=== PATIENT | female | born 1950 | race Caucasian/White ===

== ENCOUNTER → 2017-05-05 | Outpatient (CLI) | payer OTHER ==
--- NOTE | 2017-05-05 15:09 | US ---
EXAMINATION TYPE: US extremity nonvasc mass RT DATE OF EXAM: 05/05/2017 COMPARISON: NONE CLINICAL HISTORY: R22.31 Right arm lump. Patient noticed lump right arm 2 weeks ago, scanned directly over lump. soft tissue density that blen ds in with surrounding tissue measuring 1.1 x 0.5 x 1.0 cm, probable lipoma. In the subcutaneous tissue just below skin surface there is oval poorly defined hyperechoic area chip uring 1.1 cm on long axis favoring lipoma or other benign etiology. If lesion enlarges or becomes elissa nful further investigation with MRI may be warranted. IMPRESSION: As above
--- NOTE | 2017-05-07 08:09 | MM ---
Reason for exam: screening (asymptomatic). Last mammogram was performed 1 year and 9 months ago. History: Patient is postmenopausal. Took estrogen for 2 years beginning at age 49. Physical Findings: A clinical breast exam by your physician is recommended on an annual basis and results should be correlated with mammographic findings. MG Screening Mammo w CAD Bilateral CC and MLO view(s) were taken. Prior study comparison: July 31, 2015, bilateral MG screening mammo w CAD. There are scattered fibroglandular densities. No significant changes when compared with prior studies. ASSESSMENT: Negative, BI-RAD 1 RECOMMENDATION: Routine screening mammogram of both breasts in 1 year.
== END | disposition home or self-care (01) ==
LOC: RADUSWWP 14:18
PROVIDERS: ATTEND Family Medicine
DX: Z12.31 Encounter for screening mammogram for malignant neoplasm of breast (principal); R22.31 Localized swelling, mass and lump, right upper limb
CPT/HCPCS: 76882; G0202

== ENCOUNTER → 2017-06-03 | Outpatient (CLI) | payer OTHER ==
--- NOTE | 2017-06-03 16:59 | US ---
EXAMINATION TYPE: US carotid duplex BILAT DATE OF EXAM: 06/03/2017 COMPARISON: NONE CLINICAL HISTORY: R42 dizziness. Symptom not related to positional changes EXAM MEASUREMENTS: RIGHT: Peak Systolic Velocity (PSV) cm/sec ----- Right CCA: 63.9 ----- Right ICA: 83.3 ----- Right ECA: 75.6 ICA/CCA ratio: 1.3 RIGHT: End Diastole cm/sec ----- Right CCA: 13.4 ----- Right ICA: 32.6 ----- Right ECA: 9.5 LEFT: Peak Systolic Velocity (PSV) cm/sec ----- Left CCA: 60.1 ----- Left ICA: 84.4 ----- Left ECA: 82.2 ICA/CCA ratio: 1.4 LEFT: End Diastole cm/sec ----- Left CCA: 17.2 ----- Left ICA: 33.7 ----- Left ECA: 8.4 VERTEBRALS (direction of flow): Right Vertebral: Antegrade Left Vertebral: Antegrade Peak systolic velocity is wnl bialterally. IMPRESSION: Scattered intimal hyperplasia without evidence for hemodynamically significant stenosis. Criteria for Assigning % of Stenosis / Diameter reduction (Estimation based on the indirect measurements of the internal carotid artery velocities (ICA PSV). 1. Normal (no stenosis)=ICA PSV < 125 cm/s: ratio < 2.0: ICA EDV<40 cm/s. 2. Less than 50% stenosis=ICA PSV < 125 cm/s: ratio < 2.0: ICA EDV<40 cm/s. 3. 50 to 69% stenosis=ICA PSV of 125 to 230 cm/s: ration 2.0 ? 4.0: ICA EDV 40-100 cm/s. 4. Greater than 70% stenosis to near occlusion= ICA PSV > 230 cm/s: ratio > 4.0: ICA EDV > 100 cm/s. 5. Near occlusion= ICA PSV velocities may be low or undetectable: variable ratio and ICA EDV. 6. Total occlusion=unable to detect flow.
== END | disposition home or self-care (01) ==
LOC: RADUSWWP 15:36
PROVIDERS: ATTEND Family Medicine
DX: I77.3 Arterial fibromuscular dysplasia (principal)
CPT/HCPCS: 93880

== ENCOUNTER → 2017-11-17 | Outpatient (CLI) | payer MEDICARE, OTHER ==
--- NOTE | 2017-11-17 10:45 | US ---
EXAMINATION TYPE: US kidneys/renal and bladder DATE OF EXAM: 11/17/2017 COMPARISON: Correlation CT 07/07/2015 CLINICAL HISTORY: 67-year-old female N39.0 Urinary tract infection, site not specified. Recurrent UTI 's, hematuria TECHNIQUE: Multiple sonographic images of the kidneys and bladder are obtained. FINDINGS: Right Kidney: 10.5 x 4.8 x 5.3 cm without hydronephrosis. There is a 1.7 cm upper pole parapelvic cy st. Left Kidney: 12.2 x 5.9 x 4.8 cm without hydronephrosis. There is a mid to lower pole 2.0 cm parapelv ic cyst. No gross abnormality of the urine distended bladder. Bilateral Jets seen: yes IMPRESSION: 1. No hydronephrosis. 2. Incidentally, a parapelvic cyst on each side measuring up to 2 cm.
== END | disposition home or self-care (01) ==
LOC: RADUSWWP 09:21
PROVIDERS: ATTEND Obstetrics & Gynecology
DX: N39.0 Urinary tract infection, site not specified (principal)
CPT/HCPCS: 76770

== ENCOUNTER → 2018-10-14 | Outpatient (CLI) | payer MEDICARE, OTHER ==
--- NOTE | 2018-10-16 14:50 | MM ---
Reason for exam: screening (asymptomatic). Last mammogram was performed 1 year and 5 months ago. History: Patient is postmenopausal. Took estrogen for 2 years beginning at age 49. MG 3D Screening Mammo W/Cad Bilateral CC and MLO view(s) were taken. Prior study comparison: May 05, 2017, bilateral MG screening mammo w CAD. July 31, 2015, bilateral MG screening mammo w CAD. The breast tissue is heterogeneously dense. This may lower the sensitivity of mammography. No discrete abnormality. No significant changes when compared with prior studies. ASSESSMENT: Negative, BI-RAD 1 RECOMMENDATION: Routine screening mammogram of both breasts in 1 year.
== END | disposition home or self-care (01) ==
LOC: RADMAMWWP 10:22
PROVIDERS: ATTEND Family Medicine
DX: Z12.31 Encounter for screening mammogram for malignant neoplasm of breast (principal)
CPT/HCPCS: 77063; 77067

== ENCOUNTER → 2019-09-14 | Outpatient (CLI) | payer MEDICARE, OTHER ==
--- NOTE | 2019-09-14 14:25 | XR ---
EXAMINATION TYPE: XR chest 2V DATE OF EXAM: 09/14/2019 COMPARISON: Prior chest x-ray 07/07/2015 HISTORY: Bronchitis, chest congestion TECHNIQUE: Frontal and lateral views of the chest are obtained. FINDINGS: There is no focal air space opacity, pleural effusion, or pneumothorax seen. The cardiac silhouette size is within normal limits. The osseous structures are intact. Aorta is dense. IMPRESSION: No acute cardiopulmonary process.
== END | disposition home or self-care (01) ==
LOC: RADXRMAIN 11:24
PROVIDERS: ATTEND Family Medicine
DX: J40 Bronchitis, not specified as acute or chronic (principal)
CPT/HCPCS: 71046

== ENCOUNTER → 2019-11-18 | Outpatient (CLI) | payer MEDICARE, OTHER ==
--- NOTE | 2019-11-21 11:24 | MM ---
Reason for exam: screening (asymptomatic). Last mammogram was performed 1 year and 1 month ago. History: Patient is postmenopausal. Took estrogen for 2 years beginning at age 49. Physical Findings: A clinical breast exam by your physician is recommended on an annual basis and results should be correlated with mammographic findings. MG 3D Screening Mammo W/Cad Bilateral CC and MLO view(s) were taken. Prior study comparison: October 14, 2018, bilateral MG 3d screening mammo w/cad. May 05, 2017, bilateral MG screening mammo w CAD. The breast tissue is heterogeneously dense. This may lower the sensitivity of mammography. No suspicious abnormality. No significant changes when compared with prior studies. ASSESSMENT: Negative, BI-RAD 1 RECOMMENDATION: Routine screening mammogram of both breasts in 1 year.
== END | disposition home or self-care (01) ==
LOC: RADMAMWWP 09:35
PROVIDERS: ATTEND Family Medicine
DX: Z12.31 Encounter for screening mammogram for malignant neoplasm of breast (principal)
CPT/HCPCS: 77063; 77067

== ENCOUNTER → 2020-10-08 | Outpatient (CLI) | payer MEDICARE, OTHER | END | disposition home or self-care (01) | LOC: LABWHC1 13:26 | PROVIDERS: ATTEND Family Medicine | DX: Z11.52 Encounter for screening for COVID-19 (principal) | CPT/HCPCS: U0003; C9803; U0005 ==

== ENCOUNTER → 2020-10-24 | Outpatient (CLI) | payer MEDICARE, OTHER ==
--- NOTE | 2020-10-24 13:09 | XR ---
EXAMINATION TYPE: XR chest 2V DATE OF EXAM: 10/24/2020 COMPARISON: Prior chest x-ray 09/14/2019 HISTORY: Hypertension, shortness of breath, asthma exacerbation TECHNIQUE: Frontal and lateral views of the chest are obtained. FINDINGS: There is no focal air space opacity, pleural effusion, or pneumothorax seen. The cardiac silhouette size is stable, small. There are prominent lung volumes. Apical pleural thickening stable . Aorta is dense. The osseous structures are intact. IMPRESSION: No acute cardiopulmonary process.
== END | disposition home or self-care (01) ==
LOC: RADXRMAIN 10:46
PROVIDERS: ATTEND Nurse Practitioner Family
DX: I10 Essential (primary) hypertension (principal); J45.901 Unspecified asthma with (acute) exacerbation
CPT/HCPCS: 71046

== ENCOUNTER → 2021-01-07 | Outpatient (CLI) | payer MEDICARE, OTHER ==
--- NOTE | 2021-01-08 13:44 | MR ---
EXAMINATION TYPE: MR pelvis wo/w con DATE OF EXAM: 01/07/2021 COMPARISON: Outside CT abdomen and pelvis December 18, 2020 HISTORY: Chronic cystitis, r/o urethral diverticulum. Recurrent urinary tract infections. History of bladder sling procedure. CONTRAST: Standard multiplanar, multisequence MRI departmental protocol utilizing 7.5 mL intravenous Gadavist g adolinium contrast. FINDINGS: Urinary bladder shows increased urinary distention during MRI images obtained. There is no suspicious wall thickening or intraluminal mass noted. Uterus is surgically absent. Sigmoid colonic d iverticulosis is redemonstrated. Mild wall thickening and sigmoid rectal colon again seen. No free fl uid in pelvis. Persistent small fat-containing bilateral inguinal hernias. No concerning pelvic adeno durga. Evaluation of the female urethra is suboptimal due to large field of view. In addition dynamic MRI is not performed at this institution. No obvious focal diverticulum is present. Contrast or fluid-fille d urethra is not identified. 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 No suspicious postcont rast enhancement is present. IMPRESSION: As above.
== END | disposition home or self-care (01) ==
LOC: RADMRIMAIN 07:11
PROVIDERS: ATTEND Urology
DX: N30.20 Other chronic cystitis without hematuria (principal); N39.0 Urinary tract infection, site not specified; Z98.890 Other specified postprocedural states
CPT/HCPCS: 72197; A9585

== ENCOUNTER 2021-01-16 12:05 | Day surgery (SDC) | payer MEDICARE, OTHER ==
[2021-01-15 09:59] VITALS: BMI 25.9
[~2021-01-16 12:05] MED LIST: LACTATED RINGERS 1,000 ML IV SCH; LIDOCAINE 1% (10MG/ML) FOR IV START INTRADERMA PRN
[2021-01-16] MEDS ORDERED: LIDOCAINE 1% (10MG/ML) FOR IV START INTRADERMA ONE (13:20)
[2021-01-16 13:28] VITALS: TEMP 97.5
[2021-01-16] MEDS ORDERED: PROPOFOL 10 MG/ML 20 ML VIAL IV ONE (13:37)
--- NOTE | 2021-01-16 13:55 | P.PCN ---
Date of Procedure: 01/16/21 Procedure(s) Performed: Brief history: Patient is a pleasant 70-year-old white female scheduled for an elective upper endoscopy as well as colonoscopy as a part of evaluation of GERD and prior history of colon polyps. Procedure performed: Esophagogastroduodenoscopy with biopsy Colonoscopy Preoperative diagnosis: Long-standing history of GERD and history of colon polyps Anesthesia: MAC Procedure: After informed consent was obtained from the patient was brought into the endoscopy unit and IV sedation was administered by anesthesia under continuous monitoring. Initially upper endoscopy was done. The Olympus GF 160 video endoscope was inserted inserted into the mouth and esophagus intubated without any difficulty and was gradually advanced into the stomach and duodenum and carefully examined. The bulb and second part of the duodenum appeared normal. The scope was then withdrawn into the stomach adequately insufflated with air and upon careful examination the antrum and body, cardia and fundus appeared normal. The scope was then withdrawn into the esophagus. The GE junction was located at 40 cm to the incisors. It appeared regular with no erythema erosions or ulcerations. Rest of the esophagus appeared normal. Patient tolerated the procedure well. At this time the patient continued to remain sedation. Initial digital rectal examination was normal. Olympus CF 160 video colonoscope was then inserted into the rectum and gradually advanced to the cecum without any difficulty. Careful examination was performed as the scope was gradually being withdrawn. The prep was excellent. The cecum, ascending colon, transverse colon, descending colon, sigmoid colon and rectum appeared normal. In the sigmoid diverticulosis. Retroflexion was performed in the rectum and no lesions were noted. Patient tolerated the procedure well. Impression: 1.Upper endoscopy revealed mild antral gastritis/duodenitis and small sliding Hiatal hernia 2.Colonoscopy revealed moderate sigmoid diverticulosis but no evidence of colorectal neoplasia Recommendations: Findings of this examination were discussed with the patient as well Ralph family. She was advised to follow with the biopsy results. She'll continue with omeprazole once daily and follow antireflux measures. She was advised to have a repeat surveillance colonoscopy in 5 years from now because of the prior history of colon polyps. She'll be seen in office in 2 weeks.
[2021-01-16 14:18] VITALS: BP 127/68; PULSE 92; RESP 18
== END 2021-01-16 14:55 | disposition home or self-care (01) ==
LOC: ORWHC2ENDO 12:05
PROVIDERS: ATTEND Internal Medicine Gastroenterology
DX: Z12.11 Encounter for screening for malignant neoplasm of colon (principal); K57.30 Diverticulosis of large intestine without perforation or abscess without bleeding; K29.80 Duodenitis without bleeding; K44.9 Diaphragmatic hernia without obstruction or gangrene; Z86.010 Personal history of colon polyps; I25.119 Atherosclerotic heart disease of native coronary artery with unspecified angina pectoris; I10 Essential (primary) hypertension; E78.5 Hyperlipidemia, unspecified; Z87.891 Personal history of nicotine dependence; E07.9 Disorder of thyroid, unspecified; K21.9 Gastro-esophageal reflux disease without esophagitis; Z79.890 Hormone replacement therapy; Z98.890 Other specified postprocedural states; Z90.89 Acquired absence of other organs; Z79.899 Other long term (current) drug therapy; Z88.5 Allergy status to narcotic agent
CPT/HCPCS: 88305; 43239; J2704; G0105; 45378

== ENCOUNTER → 2021-01-24 | Outpatient (CLI) | payer MEDICARE, OTHER ==
--- NOTE | 2021-01-25 14:56 | MM ---
Reason for exam: screening (asymptomatic). Last mammogram was performed 1 year and 2 months ago. History: Patient is postmenopausal. Took estrogen for 2 years beginning at age 49. Physical Findings: A clinical breast exam by your physician is recommended on an annual basis and results should be correlated with mammographic findings. MG 3D Screening Mammo W/Cad Bilateral CC and MLO view(s) were taken. Prior study comparison: November 18, 2019, bilateral MG 3d screening mammo w/cad. October 14, 2018, bilateral MG 3d screening mammo w/cad. The breast tissue is heterogeneously dense. This may lower the sensitivity of mammography. Benign calcifications. No significant changes when compared with prior studies. ASSESSMENT: Benign, BI-RAD 2 RECOMMENDATION: Routine screening mammogram of both breasts in 1 year.
== END | disposition home or self-care (01) ==
LOC: RADMAMWWP 07:34
PROVIDERS: ATTEND Family Medicine
DX: Z12.31 Encounter for screening mammogram for malignant neoplasm of breast (principal); Z78.0 Asymptomatic menopausal state
CPT/HCPCS: 77063; 77067

== ENCOUNTER → 2021-03-14 | Outpatient (CLI) | payer MEDICARE, OTHER ==
--- NOTE | 2021-03-14 11:18 | FL ---
EXAMINATION TYPE: FL barium swallow DATE OF EXAM: 03/14/2021 CLINICAL HISTORY: Reflux TECHNIQUE: A double contrast esophagram is performed utilizing air and barium. A total of 39 second s of fluoroscopic time was utilized during procedure and 38 images obtained. COMPARISON: None FINDINGS: The esophagus shows normal motility and emptying into the stomach. No evidence of hiatal h ernia or stricture noted. No significant gastroesophageal reflux was seen during real time performanc e of this study. IMPRESSION: No significant abnormality is seen to account for patient's symptoms.
== END | disposition home or self-care (01) ==
LOC: RADUSWWP 09:39
PROVIDERS: ATTEND Family Medicine
DX: K21.9 Gastro-esophageal reflux disease without esophagitis (principal)
CPT/HCPCS: 74220

== ENCOUNTER 2021-04-04 09:31 | Observation (INO) | payer MEDICARE, OTHER ==
[2021-04-04] MEDS ORDERED: NITROGLYCERIN OINT 1 INCH/GM PACKET TOPICAL STA (10:00)
[2021-04-04] MEDS ORDERED: ASPIRIN 81 MG PO STA (10:00)
--- NOTE | 2021-04-04 10:06 | ED ---
General Adult HPI - General Chief complaint: Chest Pain Stated complaint: Chest pain Time Seen by Provider: 04/04/21 09:35 Source: patient, RN notes reviewed, old records reviewed Mode of arrival: wheelchair Limitations: no limitations - History of Present Illness Initial comments: This is an 70-year-old female presents emergency Department complaining of chest pain. Patient states it radiates to the back and sometimes down her arm. Patient states she's been going on since December but today Much worse and she was afraid she would not be able to make it to Thursday for her scheduled catheterization. Patient states she still also a little short of breath with it. Patient denies any diaphoretic episodes. Patient denies exertion making it any worse. Patient states she's had an EGD and they found nothing. Patient states she had a stress test that was normal as well so Dr. Craig wanted do a cardiac catheterization on her. Patient states she doesn't have a history of any anxiety. Patient denies any recent fever chills or cough. Patient denies any calf tenderness or leg edema - Related Data Home Medications Medication Instructions Recorded Confirmed Diltiazem Cd [Cardizem CD] 180 mg PO DAILY 01/29/15 04/04/21 Levothyroxine Sodium [Synthroid] 88 mcg PO DAILY 01/29/15 04/04/21 ALPRAZolam [Xanax] 0.25 mg PO HS PRN 01/15/21 04/04/21 Ergocalciferol [Vitamin D2 (1250 1,250 mcg PO TH 01/15/21 04/04/21 Mcg = 92369 Iu)] Estradiol Cream [Estrace Cream 1 gm VAGINAL MOWEFR 01/15/21 04/04/21 0.01%] Losartan [Cozaar] 50 mg PO DAILY 01/15/21 04/04/21 Multivitamins, Thera [Multivitamin 1 tab PO DAILY 01/15/21 04/04/21 (formulary)] Omeprazole [PriLOSEC] 20 mg PO AC-BRKFST 01/15/21 04/04/21 Rosuvastatin [Crestor] 10 mg PO HS 01/15/21 04/04/21 Hydrochlorothiazide 12.5 mg PO DAILY 04/04/21 04/04/21 [hydroCHLOROthiazide] Allergies Allergy/AdvReac Type Severity Reaction Status Date / Time codeine AdvReac Nausea & Verified 04/04/21 11:35 Vomiting Review of Systems ROS Statement: Those systems with pertinent positive or pertinent negative responses have been documented in the HPI. ROS Other: All systems not noted in ROS Statement are negative. Past Medical History Past Medical History: Asthma, Chest Pain / Angina, GERD/Reflux, Hyperlipidemia, Hypertension, Osteoarthritis (OA), Thyroid Disorder Additional Past Medical History / Comment(s): hx hypercalcemia. diverticulosis, hiatal hernia, hx small ulcer, History of Any Multi-Drug Resistant Organisms: None Reported Past Surgical History: Bladder Surgery, Heart Catheterization, Hysterectomy Additional Past Surgical History / Comment(s): rt sub maxillary salivary gland removal, parathryroidectomy, bladder suspensinon/sling/"pelvic lift" Past Anesthesia/Blood Transfusion Reactions: Motion Sickness Past Psychological History: Depression Smoking Status: Former smoker Past Alcohol Use History: None Reported Past Drug Use History: None Reported - Past Family History Father Family Medical History: Cancer Additional Family Medical History / Comment(s): prostate cancer Mother Family Medical History: Congestive Heart Failure (CHF) Additional Family Medical History / Comment(s): Mother of CHF at age 55yrs. General Exam - General Exam Comments Initial Comments: GENERAL: Patient is well-developed and well-nourished. Patient is nontoxic and well- hydrated and is in mild distress. ENT: Neck is soft and supple. No significant lymphadenopathy is noted. Oropharynx is clear. Moist mucous membranes. Neck has full range of motion without eliciting any pain. EYES: The sclera were anicteric and conjunctiva were pink and moist. Extraocular movements were intact and pupils were equal round and reactive to light. Eyelids were unremarkable. PULMONARY: Unlabored respirations. Good breath sounds bilaterally. No audible rales rhonchi or wheezing was noted. CARDIOVASCULAR: There is a regular rate and rhythm without any murmurs gallops or rubs. ABDOMEN: Soft and nontender with normal bowel sounds. SKIN: Skin is clear with no lesions or rashes and otherwise unremarkable. NEUROLOGIC: Patient is alert and oriented x3. Cranial nerves II through XII are grossly intact. Motor and sensory are also intact. Normal speech, volume and content. Symmetrical smile. MUSCULOSKELETAL: Normal extremities with adequate strength and full range of motion. LYMPHATICS: No significant lymphadenopathy is noted PSYCHIATRIC: Normal psychiatric evaluation. Limitations: no limitations Course Vital Signs 04/04/21 04/04/21 04/04/21 09:32 09:42 10:00 Temperature 98.3 F Pulse Rate 79 71 Respiratory 16 13 Rate Blood Pressure 142/63 137/67 O2 Sat by Pulse 99 96 96 Oximetry 04/04/21 04/04/21 10:30 11:00 Temperature Pulse Rate 75 73 Respiratory 18 13 Rate Blood Pressure 113/66 122/75 O2 Sat by Pulse 96 96 Oximetry Medical Decision Making - Medical Decision Making EKG shows sinus rhythm at 76 bpm ND interval is 220 QRS is 94 Q-T intervals 400 QTC is 450. Patient's EKG shows no ST segment elevation or depression. Chest x-ray shows no acute abnormality. I spoke with Dr. Miller she agreed to admit the patient admitted the patient I wrote admitting orders. - Lab Data Result diagrams: 04/04/21 10:10 04/04/21 10:10 Lab Results 04/04/21 04/04/21 04/04/21 Range/Units 10:10 10:10 10:10 WBC 7.4 (3.8-10.6) k/uL RBC 4.72 (3.80-5.40) m/uL Hgb 15.7 (11.4-16.0) gm/dL Hct 43.8 (34.0-46.0) % MCV 92.7 (80.0-100.0) fL MCH 33.2 (25.0-35.0) pg MCHC 35.8 (31.0-37.0) g/dL RDW 11.9 (11.5-15.5) % Plt Count 304 (150-450) k/uL MPV 7.2 Neutrophils % 69 % Lymphocytes % 18 % Monocytes % 6 % Eosinophils % 5 % Basophils % 1 % Neutrophils # 5.1 (1.3-7.7) k/uL Lymphocytes # 1.3 (1.0-4.8) k/uL Monocytes # 0.4 (0-1.0) k/uL Eosinophils # 0.4 (0-0.7) k/uL Basophils # 0.1 (0-0.2) k/uL PT 10.3 (9.0-12.0) sec INR 1.0 (<1.2) APTT 23.2 (22.0-30.0) sec Sodium 141 (137-145) mmol/L Potassium 4.1 (3.5-5.1) mmol/L Chloride 103 (98-107) mmol/L Carbon Dioxide 31 H (22-30) mmol/L Anion Gap 7 mmol/L BUN 23 H (7-17) mg/dL Creatinine 0.84 (0.52-1.04) mg/dL Est GFR (CKD-EPI)AfAm 83 (>60 ml/min/1.73 sqM) Est GFR (CKD-EPI)NonAf 72 (>60 ml/min/1.73 sqM) Glucose 95 (74-99) mg/dL Calcium 9.9 (8.4-10.2) mg/dL Magnesium 2.0 (1.6-2.3) mg/dL Total Bilirubin 0.4 (0.2-1.3) mg/dL AST 28 (14-36) U/L ALT 19 (4-34) U/L Alkaline Phosphatase 86 (38-126) U/L Troponin I (0.000-0.034) ng/mL Total Protein 6.9 (6.3-8.2) g/dL Albumin 4.5 (3.5-5.0) g/dL 04/04/21 Range/Units 10:10 WBC (3.8-10.6) k/uL RBC (3.80-5.40) m/uL Hgb (11.4-16.0) gm/dL Hct (34.0-46.0) % MCV (80.0-100.0) fL MCH (25.0-35.0) pg MCHC (31.0-37.0) g/dL RDW (11.5-15.5) % Plt Count (150-450) k/uL MPV Neutrophils % % Lymphocytes % % Monocytes % % Eosinophils % % Basophils % % Neutrophils # (1.3-7.7) k/uL Lymphocytes # (1.0-4.8) k/uL Monocytes # (0-1.0) k/uL Eosinophils # (0-0.7) k/uL Basophils # (0-0.2) k/uL PT (9.0-12.0) sec INR (<1.2) APTT (22.0-30.0) sec Sodium (137-145) mmol/L Potassium (3.5-5.1) mmol/L Chloride (98-107) mmol/L Carbon Dioxide (22-30) mmol/L Anion Gap mmol/L BUN (7-17) mg/dL Creatinine (0.52-1.04) mg/dL Est GFR (CKD-EPI)AfAm (>60 ml/min/1.73 sqM) Est GFR (CKD-EPI)NonAf (>60 ml/min/1.73 sqM) Glucose (74-99) mg/dL Calcium (8.4-10.2) mg/dL Magnesium (1.6-2.3) mg/dL Total Bilirubin (0.2-1.3) mg/dL AST (14-36) U/L ALT (4-34) U/L Alkaline Phosphatase (38-126) U/L Troponin I <0.012 (0.000-0.034) ng/mL Total Protein (6.3-8.2) g/dL Albumin (3.5-5.0) g/dL Disposition Clinical Impression: Chest pain Disposition: ADMITTED IP TO THIS HOSP Referrals: Mienrva Sánchez DO [Primary Care Provider] - 1-2 days Time of Disposition: 11:57
[2021-04-04 10:19] LABS: Basophils # (A) 0.1 k/uL (0-0.2); Basophils % (A) 1 %; Eosinophils # (A) 0.4 k/uL (0-0.7); Eosinophils % (A) 5 %; HCT 43.8 % (34.0-46.0); HGB 15.7 gm/dL (11.4-16.0); Lymphocytes # (A) 1.3 k/uL (1.0-4.8); Lymphocytes % (A) 18 %; MCH 33.2 pg (25.0-35.0); MCHC 35.8 g/dL (31.0-37.0); MCV 92.7 fL (80.0-100.0); Mean Platelet Volume 7.2; Monocytes # (A) 0.4 k/uL (0-1.0); Monocytes % (A) 6 %; Neutrophils # (A) 5.1 k/uL (1.3-7.7); Neutrophils % (A) 69 %; Platelet Count 304 k/uL (150-450); RBC 4.72 m/uL (3.80-5.40); RDW 11.9 % (11.5-15.5); WBC 7.4 k/uL (3.8-10.6)
[2021-04-04 10:29] LABS: Albumin 4.5 g/dL (3.5-5.0); Calcium 9.9 mg/dL (8.4-10.2); Potassium 4.1 mmol/L (3.5-5.1); Total Bilirubin 0.4 mg/dL (0.2-1.3); Total Protein 6.9 g/dL (6.3-8.2)
[2021-04-04 10:37] LABS: Partial Thromboplastin Time 23.2 sec (22.0-30.0); Prothrombin Time 10.3 sec (9.0-12.0)
--- NOTE | 2021-04-04 10:56 | XR ---
EXAMINATION TYPE: XR chest 2V DATE OF EXAM: 04/04/2021 COMPARISON: Chest x-ray 10/24/2020 HISTORY: Chest pain TECHNIQUE: Frontal and lateral views of the chest are obtained. FINDINGS: There is no focal air space opacity, pleural effusion, or pneumothorax seen. The cardiac silhouette size is stable. There are overlying leads. Aorta is dense. The osseous structures are int act. IMPRESSION: No acute cardiopulmonary process.
[2021-04-04] MEDS ORDERED: SODIUM CHLORIDE 0.9% 1,000 ML IV ONE (11:25)
[2021-04-04] MEDS ORDERED: NITROGLYCERIN SL TABS 0.4 MG TAB SUBLINGUAL PRN (11:57)
[2021-04-04] MEDS: NITROGLYCERIN OINT 1 INCH/GM PACKET TOPICAL SCH ×2 (13:39→20:40)
[2021-04-04] MEDS ORDERED: ALPRAZolam 0.25 MG TAB PO PRN (15:25)
[2021-04-04] MEDS: DILTIAZEM CD 180 MG CAP.ER.24H PO SCH (15:34)
[2021-04-04] MEDS: hydroCHLOROthiazide 12.5 MG CAP PO SCH (15:34)
[2021-04-04] MEDS ORDERED: ERGOCALCIFEROL 1,250 MCG (50,000 IU) CAPSULE PO SCH (16:00)
[2021-04-04] MEDS: ACETAMINOPHEN TAB 325 MG TAB PO PRN ×2 (16:14→20:41)
--- NOTE | 2021-04-04 17:38 | P.HPIM ---
History of Present Illness H&P Date: 04/04/21 Chief Complaint: Chest pain Ms. Olsen is a 70-year-old female with a past medical history of asthma, GERD, hypertension, hyperlipidemia, osteoarthritis, thyroid disorder, hiatal hernia coming into the hospital with a chief complaint of chest pain. Patient states that she felt a sharp pain in her substernal area slightly radiating to the left side of the chest this morning. When she had the chest pain she was having mild difficulty in breathing, but denied having any nausea vomiting or diaphoresis. She states that the pain lasted for almost 15-20 minutes and subsided. But she Is worrying about it as she was scheduled to have a cardiac catheterization on Thursday for evaluation of her chest pain. Patient denied having any orthopnea or PND. She denied having any swelling of her lower extremities currently. But she says sometimes she has lower extremity swelling on and off. She has been undergoing evaluation for this chest pain, she had a stress test recently and was told it was negative by her regional guide. She was also following up with GI Dr. Loaiza, had EGD and colonoscopy that have been within normal limits. She states that she was also seeing her amusement park worker. Patient has history of smoking but quit in 2002, alcohol very occasionally. She mentions that her sister had a massive heart attack couple of years back. Patient denied having any fevers chills or rigors. No abdominal pain nausea vomiting or diarrhea. No dysuria or hematuria. She denied having any headaches, blurring of vision or neck stiffness. She denied having any weakness of her extremities. In the ER at the time of admission patient's vitals temperature 98.3, heart rate 79, respiratory rate 16, blood pressure 142/63 saturating at 99% on room air. On reviewing her labs white count of 7.4, hemoglobin 15.7, platelets 304. Sodium 141, potassium 4.1, chloride 103, bicarbonate 31, BUN 23, creatinine 0.84. AST 80 within normal limits. Troponin 3 less than 0.012. She had an EKG showing sinus rhythm with first-degree AV block. Chest x-ray done showing no acute cardiopulmonary process. Review of Systems REVIEW OF SYSTEMS: CONSTITUTIONAL: No fever, no malaise, no fatigue. HEENT: No headache, no neck stiffness, no blurring of vision CARDIOVASCULAR: As per HPI PULMONARY: No cough or difficulty in breathing GASTROINTESTINAL: No Abdominal pain nausea vomiting or diarrhea NEUROLOGICAL: No weakness of extremities HEMATOLOGICAL: Denies any bleeding or petechiae. GENITOURINARY: Denies any burning micturition, frequency, or urgency. MUSCULOSKELETAL/RHEUMATOLOGICAL: Denies any joint pain, swelling, or any muscle pain. ENDOCRINE: Denies polyuria polydipsia or heat or cold intolerance The rest of the 14-point review of systems is negative. Past Medical History Past Medical History: Asthma, Chest Pain / Angina, GERD/Reflux, Hyperlipidemia, Hypertension, Osteoarthritis (OA), Thyroid Disorder Additional Past Medical History / Comment(s): hx hypercalcemia. diverticulosis, hiatal hernia, hx small ulcer, History of Any Multi-Drug Resistant Organisms: None Reported Past Surgical History: Bladder Surgery, Heart Catheterization, Hysterectomy Additional Past Surgical History / Comment(s): rt sub maxillary salivary gland removal, parathryroidectomy, bladder suspensinon/sling/"pelvic lift". colonoscopy and EGD done 01/16 Past Anesthesia/Blood Transfusion Reactions: Motion Sickness Past Psychological History: Depression Additional Psychological History / Comment(s): . Smoking Status: Former smoker Past Alcohol Use History: None Reported Additional Past Alcohol Use History / Comment(s): Pt started smoking at age 16 and quit in 2002 Past Drug Use History: None Reported - Past Family History Father Family Medical History: Cancer Additional Family Medical History / Comment(s): prostate cancer Mother Family Medical History: Congestive Heart Failure (CHF) Additional Family Medical History / Comment(s): Mother of CHF at age 55yrs. Medications and Allergies Home Medications Medication Instructions Recorded Confirmed Type Diltiazem Cd [Cardizem CD] 180 mg PO DAILY 01/29/15 04/04/21 History Levothyroxine Sodium [Synthroid] 88 mcg PO DAILY 01/29/15 04/04/21 History ALPRAZolam [Xanax] 0.25 mg PO HS PRN 01/15/21 04/04/21 History Ergocalciferol [Vitamin D2 (1250 1,250 mcg PO TH 01/15/21 04/04/21 History Mcg = 05506 Iu)] Estradiol Cream [Estrace Cream 1 gm VAGINAL MOWEFR 01/15/21 04/04/21 History 0.01%] Losartan [Cozaar] 50 mg PO DAILY 01/15/21 04/04/21 History Multivitamins, Thera [Multivitamin 1 tab PO DAILY 01/15/21 04/04/21 History (formulary)] Omeprazole [PriLOSEC] 20 mg PO AC-BRKFST 01/15/21 04/04/21 History Rosuvastatin [Crestor] 10 mg PO HS 01/15/21 04/04/21 History Hydrochlorothiazide 12.5 mg PO DAILY 04/04/21 04/04/21 History [hydroCHLOROthiazide] Allergies Allergy/AdvReac Type Severity Reaction Status Date / Time codeine AdvReac Nausea & Verified 04/04/21 11:35 Vomiting Physical Exam Vitals: Vital Signs Temp Pulse Pulse Resp BP BP Pulse Ox 04/04/21 15:30 18 04/04/21 15:00 97.7 F 83 18 132/71 96 04/04/21 12:00 66 14 127/74 94 L 04/04/21 11:30 69 14 125/69 93 L 04/04/21 11:00 73 13 122/75 96 04/04/21 10:30 75 18 113/66 96 04/04/21 10:00 71 13 137/67 96 04/04/21 09:42 96 04/04/21 09:32 98.3 F 79 16 142/63 99 Intake and Output 04/04/21 04/04/21 04/04/21 06:59 14:59 22:59 Other: # Voids 1 Weight 81.647 kg 81.647 kg PHYSICAL EXAMINATION: GENERAL: Comfortably sitting up in bed appears in no acute distress. Her daughter is at the bedside HEENT: Pupils are round and equally reacting to light. EOMI. No scleral icterus. No conjunctival pallor. CARDIOVASCULAR: S1 and S2 present. No murmurs, rubs, or gallops. PULMONARY: Bilateral breath sounds positive. No wheeze or crackles.. ABDOMEN: Soft,non -tender, normal bowel sounds. No guarding or rigidity. MUSCULOSKELETAL: No joint swelling or deformity. EXTREMITIES: No edema NEUROLOGICAL: Alert awake oriented 3 . Gross neurological examination did not reveal any focal deficits. SKIN:No rash Results CBC & Chem 7: 04/04/21 10:10 04/04/21 10:10 Labs: Abnormal Lab Results - Last 24 Hours (Table) 04/04/21 Range/Units 10:10 Carbon Dioxide 31 H (22-30) mmol/L BUN 23 H (7-17) mg/dL Thrombosis Risk Factor Assmnt - Choose All That Apply Each Factor Represents 1 point: Obesity (BMI >25), Swollen legs (current) Other Risk Factors: Yes Each Risk Factor Represents 2 Points: Age 61-74 years Other congenital or acquired thrombophilia - If yes, enter type in comment: No Thrombosis Risk Factor Assessment Total Risk Factor Score: 4 Thrombosis Risk Factor Assessment Level: Moderate Risk Assessment and Plan Assessment: ASSESSMENT Chest pain Hypertension Hyperlipidemia Mild intermittent asthma Multiple joint osteoarthritis Hypothyroidism History of hypercalcemia History of diverticulosis Had hernia History of parathyroidectomy History of bladder suspension/sling surgery History of depression Former smoker PLAN: Patient is admitted for ACS rule out. Will get serial troponins and EKGs She is scheduled to have a cardiac on Thursday-will consult cardiology Patient is chest pain-free now She has been restarted on her home medications She complains of mild headache due to the nitro, Tylenol when necessary Further recommendations to follow depending on the progress of the patient
[2021-04-04] MEDS ORDERED: ATORVASTATIN 20 MG TAB PO SCH (21:00)
[2021-04-05] MEDS: NITROGLYCERIN OINT 1 INCH/GM PACKET TOPICAL SCH ×3 (00:26→12:38)
[2021-04-05] MEDS: ACETAMINOPHEN TAB 325 MG TAB PO PRN (02:58)
[2021-04-05] MEDS ORDERED: PANTOPRAZOLE 40 MG TABLET PO SCH (07:30)
[2021-04-05] MEDS: LEVOTHYROXINE 88 MCG TAB PO SCH ×2 (08:27→09:00)
[2021-04-05] MEDS: DILTIAZEM CD 180 MG CAP.ER.24H PO SCH (09:00)
[2021-04-05] MEDS ORDERED: ESTRADIOL 0.1 MG/GM VAGINAL CREAM 42.5 GM TUBE VAGINAL SCH (09:00)
[2021-04-05] MEDS ORDERED: ASPIRIN 325 MG TAB PO SCH (09:00)
[2021-04-05] MEDS ORDERED: MULTIVITAMINS, THERA 1 EACH TAB PO SCH (09:00)
[2021-04-05] MEDS ORDERED: LOSARTAN 50 MG TAB PO SCH (09:00)
[2021-04-05] MEDS ORDERED: ATORVASTATIN 80 MG TAB PO STA (09:35)
[2021-04-05] MEDS ORDERED: ALPRAZolam 0.5 MG TAB PO PRN (09:35)
[2021-04-05] MEDS ORDERED: SODIUM CHLORIDE 0.9% 1,000 ML in EMPTY BAG 1 BAG IV ONE (09:35)
[2021-04-05 10:10] LABS: Chol/HDL Ratio 2.69; LDL Cholesterol,Calculated 76.4 mg/dL (0.0-131.0); VLDL Calculation 16.6 mg/dL (5.00-40.00)
[2021-04-05] MEDS ORDERED: MIDAZOLAM 2 MG/2 ML VIAL IV ONE (12:02)
[2021-04-05] MEDS ORDERED: SODIUM CHLORIDE 0.9% 1,000 ML IV ONE (12:02)
[2021-04-05] MEDS ORDERED: LIDOCAINE 1% INJ 10MG/ML (20 ML MDV) SQ ONE (12:06)
[2021-04-05] MEDS: VERAPAMIL SYRINGE (5 MG/10 ML) INTRAARTER ONE ×2 (12:08→12:14)
[2021-04-05] MEDS ORDERED: IOPAMIDOL-370 125ML BTL INJ ONE (12:14)
[2021-04-05] MEDS ORDERED: RX INFO: IV CONTRAST WAS GIVEN 1 EACH MISC MISCELLANE PRN (12:20)
--- NOTE | 2021-04-05 12:21 | P.CRDCN ---
History of Present Illness History of present illness: HISTORY OF PRESENTING ILLNESS This is a pleasant 70-year-old female past medical history significant for hypertension, dyslipidemia, asthma former nicotine dependence, GERD. She follows in the office with Dr. Craig. We have been asked to see in consultation for chest pain. Patient states that yesterday she went to get her blood drawn for her upcoming Cardiac catheterization with Dr. Simpson on Thursday04/08/2021. On the way to walking to her car, she developed left sided chest tightness and short of breath. She felt that this pain was more intense and progressively getting worse, presented to the emergency department. Pain was exertional. She had associated nausea and fatigue. Her pain radiated to her left arm, also with upper back pain and she states she also gets tingling to her left arm. She usually takes Ibuprofen at home which helps subside the pain, but states it always comes back. She also states that she got nitroglycerin and this also helped. She is a former smoker, quit 22 years ago. Denies alcohol or illicit drug use. She doesn't family history of coronary artery disease. Her mother of congestive heart failure at age 55, older sister had an SC at a young age and her younger sister also had an SC at a young age. She follows closely with Dr. Craig. She followed up with Dr. Craig-03/29/2021, she continued to have intermittent episodes of chest discomfort sometimes exertional and sometimes during the night waking up from sleep. Patient was scheduled to undergo coronary angiogram on 04/08/2021. DIAGNOSTICS EKG reveals sinus rhythm with first-degree AV block, heart rate 76, no significant STT wave abnormalities. EKG this morning with similar findings. Telemetry tracings indicate sinus mechanism. Chest xray no acute cardio or pulmonary process. Cardiac catheterization 11/2013 revealed normal coronary arteries Lexiscan stress test in 12/17/2020 revealed no evidence of stress-induced ischemia Echocardiogram on 12/07/2019 revealed an EF 55%, mild mitral regurgitation Laboratory reviewed, CBC unremarkable, troponin negative 3, sodium 141, potassium 4.1, BUN 23, serum creatinine 0.84, magnesium 2.0, triglycerides 83, cholesterol 146, LDL 76, HDL 55. Current daily medications include simvastatin 10 mg nightly, omeprazole, losartan 50 mg daily, Hydrocort thiazide to 0.5 mg daily, Cardizem 180 mg daily, Xanax 0.25mg PRN REVIEW OF SYSTEMS At the time of my exam: CONSTITUTIONAL: Denies fever or chills. CARDIOVASCULAR: Positive chest pain positive shortness of breath Denies orthopnea, PND or palpitations. RESPIRATORY: Denies cough. GASTROINTESTINAL: Positive nausea Denies abdominal pain, diarrhea, constipation, vomiting. MUSCULOSKELETAL: Upper back pain NEUROLOGIC: Positive left arm tingling Denies numbness, headacbe or weakness. ENDOCRINE: Denies fatigue, weight change, polydipsia or polyurina. GENITOURINARY: Denies burning, hematuria or urgency with micturation. HEMATOLOGIC: Denies history of anemia or bleeding. PHYSICAL EXAMINATION Blood pressure 127/74 heart rate 66 afebrile and maintaining oxygen saturation 96% on room air CONSTITUTIONAL: No apparent distress. HEENT: Head is normocephalic. Pupils are equal, round. Sclerae anicteric. Mucous membranes of the mouth are moist. No JVD. No carotid bruit. CHEST EXAMINATION: Lungs are clear to auscultation. No chest wall tenderness is noted on palpation or with deep breathing. HEART EXAMINATION: Regular rate and rhythm. S1, S2 heard. No murmurs, gallops or rub. ABDOMEN: Soft, nontender. Positive bowel sounds. EXTREMITIES: 2+ peripheral pulses, no lower extremity edema and no calf tenderness. NEUROLOGIC EXAMINATION: Patient is awake, alert and oriented x3. ASSESSMENT Chest pain atypical acute coronary syndrome has been ruled out. No ischemia noted on EKG. Cardiac enzymes negative 3 Hypertension Dyslipidemia PLAN Plan for cardiac catheterization today with Dr. Craig instead of on Thursday. I have discussed the risks, benefits and alternative therapies for the above- mentioned procedure and for both sedation/analgesia as well as necessary blood product administration, if indicated, as they pertain to this patient. The patient has indicated understanding and acceptance of the risks and procedures discussed. Questions have been answered appropriately and he is agreeable to move forward with the above-stated procedure. Further recommendations to follow Nurse Practitioner note has been reviewed, I agree with a documented findings and plan of care. Patient was seen and examined. Past Medical History Past Medical History: Asthma, Chest Pain / Angina, GERD/Reflux, Hyperlipidemia, Hypertension, Osteoarthritis (OA), Thyroid Disorder Additional Past Medical History / Comment(s): hx hypercalcemia. diverticulosis, hiatal hernia, hx small ulcer, History of Any Multi-Drug Resistant Organisms: None Reported Past Surgical History: Bladder Surgery, Heart Catheterization, Hysterectomy Additional Past Surgical History / Comment(s): rt sub maxillary salivary gland removal, parathryroidectomy, bladder suspensinon/sling/"pelvic lift" Past Anesthesia/Blood Transfusion Reactions: Motion Sickness Past Psychological History: Depression Smoking Status: Former smoker Past Alcohol Use History: None Reported Past Drug Use History: None Reported - Past Family History Father Family Medical History: Cancer Additional Family Medical History / Comment(s): prostate cancer Mother Family Medical History: Congestive Heart Failure (CHF) Additional Family Medical History / Comment(s): Mother of CHF at age 55yrs. Medications and Allergies Home Medications Medication Instructions Recorded Confirmed Type Diltiazem Cd [Cardizem CD] 180 mg PO DAILY 01/29/15 04/04/21 History Levothyroxine Sodium [Synthroid] 88 mcg PO DAILY 01/29/15 04/04/21 History ALPRAZolam [Xanax] 0.25 mg PO HS PRN 01/15/21 04/04/21 History Ergocalciferol [Vitamin D2 (1250 1,250 mcg PO TH 01/15/21 04/04/21 History Mcg = 75786 Iu)] Estradiol Cream [Estrace Cream 1 gm VAGINAL MOWEFR 01/15/21 04/04/21 History 0.01%] Losartan [Cozaar] 50 mg PO DAILY 01/15/21 04/04/21 History Multivitamins, Thera [Multivitamin 1 tab PO DAILY 01/15/21 04/04/21 History (formulary)] Omeprazole [PriLOSEC] 20 mg PO AC-BRKFST 01/15/21 04/04/21 History Rosuvastatin [Crestor] 10 mg PO HS 01/15/21 04/04/21 History Hydrochlorothiazide 12.5 mg PO DAILY 04/04/21 04/04/21 History [hydroCHLOROthiazide] Allergies Allergy/AdvReac Type Severity Reaction Status Date / Time codeine AdvReac Nausea & Verified 04/04/21 11:35 Vomiting Physical Exam Vitals: Vital Signs Temp Pulse Resp BP Pulse Ox 04/04/21 12:00 66 14 127/74 94 L 04/04/21 11:30 69 14 125/69 93 L 04/04/21 11:00 73 13 122/75 96 04/04/21 10:30 75 18 113/66 96 04/04/21 10:00 71 13 137/67 96 04/04/21 09:42 96 04/04/21 09:32 98.3 F 79 16 142/63 99 Intake and Output 04/03/21 04/04/21 04/04/21 22:59 06:59 14:59 Other: Weight 81.647 kg Results 04/04/21 10:10 04/04/21 10:10 Cardiac Enzymes 04/04/21 04/04/21 04/04/21 Range/Units 10:10 10:10 13:11 AST 28 (14-36) U/L Troponin I <0.012 <0.012 (0.000-0.034) ng/mL Coagulation 04/04/21 Range/Units 10:10 PT 10.3 (9.0-12.0) sec APTT 23.2 (22.0-30.0) sec CBC 04/04/21 Range/Units 10:10 WBC 7.4 (3.8-10.6) k/uL RBC 4.72 (3.80-5.40) m/uL Hgb 15.7 (11.4-16.0) gm/dL Hct 43.8 (34.0-46.0) % Plt Count 304 (150-450) k/uL Comprehensive Metabolic Panel 04/04/21 Range/Units 10:10 Sodium 141 (137-145) mmol/L Potassium 4.1 (3.5-5.1) mmol/L Chloride 103 (98-107) mmol/L Carbon Dioxide 31 H (22-30) mmol/L BUN 23 H (7-17) mg/dL Creatinine 0.84 (0.52-1.04) mg/dL Glucose 95 (74-99) mg/dL Calcium 9.9 (8.4-10.2) mg/dL AST 28 (14-36) U/L ALT 19 (4-34) U/L Alkaline Phosphatase 86 (38-126) U/L Total Protein 6.9 (6.3-8.2) g/dL Albumin 4.5 (3.5-5.0) g/dL Current Medications Generic Name Dose Route Start Last Admin Trade Name Freq PRN Reason Stop Dose Admin Aspirin 325 mg 04/05/21 09:00 Aspirin 325 Mg Tab PO DAILY JUDIE Nitroglycerin 0.4 mg 04/04/21 11:57 Nitroglycerin Sl Tabs 0.4 Mg Tab SUBLINGUAL Q5M PRN Chest Pain Nitroglycerin 1 inch 04/04/21 14:00 04/04/21 13:39 Nitroglycerin Oint 1 Inch/Gm Packet TOPICAL 1 inch Q6HR [facility] Administration Intake and Output 04/03/21 04/04/21 04/04/21 22:59 06:59 14:59 Other: Weight 81.647 kg Patient Weight 04/05/21 06:59 Weight 81.647 kg 04/04/21 10:10 04/04/21 10:10
[2021-04-05] MEDS ORDERED: SODIUM CHLORIDE 0.9% 1,000 ML IV SCH (12:30)
[2021-04-05 13:02] VITALS: PULSE 78; RESP 17; TEMP 97.6
[2021-04-05] MEDS: hydroCHLOROthiazide 12.5 MG CAP PO SCH (13:05)
--- NOTE | 2021-04-05 13:31 | CC ---
CARDIAC CATHETERIZATION REPORT DATE OF SERVICE: April 05, 2021. PERFORMING PHYSICIAN: Mike Craig MD. PROCEDURE PERFORMED: 1. Selective right and left coronary angiogram. 2. Left heart catheterization. INDICATION: Chest discomfort. COMPLICATION: None. LEVEL OF SEDATION: Moderate with sedation length of 10 minutes. PROCEDURE DESCRIPTION: After obtaining an informed consent, the patient was brought to the cardiac laboratory monitor. The right radial artery was cannulated using micropuncture technique and a micropuncture wire passed easily. Then I placed a 6-Upper Sorbian sheath at the right radial artery. I gave the patient 2 mg of verapamil IA and 8000 units of heparin IV. Selective right and left coronary angiogram performed with JR4 and JL3.5 catheters. Left heart catheterization was performed using the JR4 catheter. The procedure was completed without any complication. SELECTIVE CORONARY ANGIOGRAM: 1. The right coronary artery is a moderate caliber vessel. It is a dominant vessel, appeared to be angiographically normal. 2. The left main is angiographically normal. It bifurcates into left circumflex and left anterior descending artery. 3. The left circumflex is a large caliber vessel. It is a nondominant vessel. The left circumflex is angiographically normal in the midportion gives rise into a large OM branch which bifurcates into 2 subbranches and they appeared to be angiographically normal. 4. The LAD is a large caliber vessel. LAD is angiographically normal. It gives rise into a diagonal branch which seems to be angiographically normal. HEMODYNAMICS: The LVEDP was 8 mmHg without gradient across the aortic valve. CONCLUSION: 1. Normal coronary angiogram. 2. Normal LVEDP. POSTPROCEDURE MANAGEMENT: Medical treatment and follow up with the patient. MMODL / IJN: [id number] /
[2021-04-05 14:45] VITALS: BP 121/68
--- NOTE | 2021-04-05 15:59 | P.DS ---
Providers Date of admission: 04/04/21 12:07 Expected date of discharge: 04/05/21 Attending physician: Leighann Miller Consults: 04/04/21 11:57 Consult Physician Urgent Consulting Provider: [facility] Consult Reason/Comments: Chest pain Do you want consulting provider notified?: Yes Primary care physician: Minerva Laurent Hospital Course: Final diagnosis Chest pain Hypertension Hyperlipidemia Mild intermittent asthma Multiple joint osteoarthritis Hypothyroidism History of hypercalcemia History of diverticulosis Had hernia History of parathyroidectomy History of bladder suspension/sling surgery History of depression Former smoker Full code Discharge disposition Patient is being discharged in a stable condition with guarded prognosis to home. Patient will follow-up with Dr. Laurent in the outpatient setting upon discharge. Patient is to also follow-up with cardiology Dr. Craig in one week. Total time taken is greater than 35 minutes. Hospital course Ms. Olsen is a 70-year-old female with a past medical history of asthma, GERD, hypertension, hyperlipidemia, osteoarthritis, thyroid disorder, hiatal hernia coming into the hospital with a chief complaint of chest pain. Patient states that she felt a sharp pain in her substernal area slightly radiating to the left side of the chest this morning. When she had the chest pain she was having mild difficulty in breathing, but denied having any nausea vomiting or diaphoresis. She states that the pain lasted for almost 15-20 minutes and subsided. But she Is worrying about it as she was scheduled to have a cardiac catheterization on Thursday for evaluation of her chest pain. Patient denied having any orthopnea or PND. She denied having any swelling of her lower extremities currently. But she says sometimes she has lower extremity swelling on and off. She has been undergoing evaluation for this chest pain, she had a stress test recently and was told it was negative by her military science teacher. She was also following up with GI Dr. Loaiza, had EGD and colonoscopy that have been within normal limits. She states that she was also seeing her ham clerk. Patient has history of smoking but quit in 2002, alcohol very occasionally. She mentions that her sister had a massive heart attack couple of years back. Patient denied having any fevers chills or rigors. No abdominal pain nausea vomiting or diarrhea. No dysuria or hematuria. She denied having any headaches, blurring of vision or neck stiffness. She denied having any weakness of her extremities. In the ER at the time of admission patient's vitals temperature 98.3, heart rate 79, respiratory rate 16, blood pressure 142/63 saturating at 99% on room air. On reviewing her labs white count of 7.4, hemoglobin 15.7, platelets 304. Sodium 141, potassium 4.1, chloride 103, bicarbonate 31, BUN 23, creatinine 0.84. AST 80 within normal limits. Troponin 3 less than 0.012. She had an EKG showing sinus rhythm with first-degree AV block. Chest x-ray done showing no acute cardiopulmonary process. 04/05/2021 Patient is seen in follow-up this morning continues to have some diffuse chest pain which is intermittent and patient is undergoing cardiac catheterization today. Dr. Craig performed cardiac catheterization which was clear and will recommend outpatient follow-up in the clinic. Patient and daughter is at the bedside. Patient is requesting to go home. Patient is on bed rest per protocol after cardiac catheterization and is cleared by cardiology once bed rest was complete. Currently no reports of chest pain, shortness of breath, or palpitations. Patient is afebrile. No reports of nausea or vomiting and patient is tolerating diet. Patient will be discharged home today. Patient instructed to follow-up with cardiology and primary care provider this week. On exam vital signs are stable. Cardio S1, S2 are muffled. Respiratory system shows diminished breath sounds at the bases with no wheezing or rhonchi noted. Abdomen is soft and nontender. Nervous system shows no focal deficits. Please refer to medication reconciliation sheet for a list of medications. Patient Condition at Discharge: Stable Plan - Discharge Summary New Discharge Prescriptions: New Nitroglycerin Sl Tabs [Nitrostat] 0.4 mg SUBLINGUAL Q5M PRN #30 tab PRN Reason: Chest Pain Acetaminophen Tab [Tylenol] 650 mg PO Q4HR PRN tab PRN Reason: Fever and/ or Mild Pain Continue Diltiazem Cd [Cardizem CD] 180 mg PO DAILY Levothyroxine Sodium [Synthroid] 88 mcg PO DAILY Losartan [Cozaar] 50 mg PO DAILY Multivitamins, Thera [Multivitamin (formulary)] 1 tab PO DAILY Hydrochlorothiazide [hydroCHLOROthiazide] 12.5 mg PO DAILY ALPRAZolam [Xanax] 0.25 mg PO HS PRN PRN Reason: Anxiety Ergocalciferol [Vitamin D2 (1250 Mcg = 00351 Iu)] 1,250 mcg PO TH Estradiol Cream [Estrace Cream 0.01%] 1 gm VAGINAL MOWEFR Omeprazole [PriLOSEC] 20 mg PO AC-BRKFST Rosuvastatin [Crestor] 10 mg PO HS Discharge Medication List Diltiazem Cd [Cardizem CD] 180 mg PO DAILY 01/29/15 [History] Levothyroxine Sodium [Synthroid] 88 mcg PO DAILY 01/29/15 [History] ALPRAZolam [Xanax] 0.25 mg PO HS PRN 01/15/21 [History] Ergocalciferol [Vitamin D2 (1250 Mcg = 31256 Iu)] 1,250 mcg PO TH 01/15/21 [History] Estradiol Cream [Estrace Cream 0.01%] 1 gm VAGINAL MOWEFR 01/15/21 [History] Losartan [Cozaar] 50 mg PO DAILY 01/15/21 [History] Multivitamins, Thera [Multivitamin (formulary)] 1 tab PO DAILY 01/15/21 [History] Omeprazole [PriLOSEC] 20 mg PO AC-BRKFST 01/15/21 [History] Rosuvastatin [Crestor] 10 mg PO HS 01/15/21 [History] Hydrochlorothiazide [hydroCHLOROthiazide] 12.5 mg PO DAILY 04/04/21 [History] Acetaminophen Tab [Tylenol] 650 mg PO Q4HR PRN tab 04/05/21 [Rx] Nitroglycerin Sl Tabs [Nitrostat] 0.4 mg SUBLINGUAL Q5M PRN #30 tab 04/05/21 [Rx] Follow up Appointment(s)/Referral(s): Mike Craig MD [STAFF PHYSICIAN] - 1 Week Minerva Laurent DO [Primary Care Provider] - 1-2 days Activity/Diet/Wound Care/Special Instructions: Activity Limited until follow-up Follow-up with primary care provider upon discharge Follow-up with cardiology as discussed in one week continue with medications as prescribed. Continue current heart healthy diet Discharge Disposition: HOME SELF-CARE
[2021-04-06] MEDS ORDERED: HEPARIN SODIUM,PORCINE 10,000 UNIT in SODIUM CHLORIDE 0.9% 1,000 ML IRRIGATION PRN (07:00)
[2021-04-06] MEDS ORDERED: HEPARIN SODIUM,PORCINE 2,500 UNIT in SODIUM CHLORIDE 0.9% 250 ML IRRIGATION PRN (07:00)
[2021-04-06] MEDS ORDERED: ATORVASTATIN 20 MG TAB PO SCH (21:00)
== END 2021-04-05 18:08 | disposition home or self-care (01) ==
LOC: EC 09:31 → 6NMEDSUR 12:07
PROVIDERS: ADMIT Internal Medicine; ATTEND Internal Medicine
DX: R07.89 Other chest pain (principal); I10 Essential (primary) hypertension; E78.5 Hyperlipidemia, unspecified; J45.20 Mild intermittent asthma, uncomplicated; M19.90 Unspecified osteoarthritis, unspecified site; E03.9 Hypothyroidism, unspecified; E83.52 Hypercalcemia; K57.90 Diverticulosis of intestine, part unspecified, without perforation or abscess without bleeding; R51.9 Headache, unspecified; R11.0 Nausea; R53.83 Other fatigue; R20.2 Paresthesia of skin; F32.9 Major depressive disorder, single episode, unspecified; I44.0 Atrioventricular block, first degree; E89.2 Postprocedural hypoparathyroidism; K21.9 Gastro-esophageal reflux disease without esophagitis; K44.9 Diaphragmatic hernia without obstruction or gangrene; M54.6 Pain in thoracic spine; Z79.890 Hormone replacement therapy; Z79.899 Other long term (current) drug therapy; Z88.5 Allergy status to narcotic agent; Z87.891 Personal history of nicotine dependence; Z90.710 Acquired absence of both cervix and uterus; Z82.49 Family history of ischemic heart disease and other diseases of the circulatory system; Z80.42 Family history of malignant neoplasm of prostate
CPT/HCPCS: 93458; 36415; 93005; 80061; 80053; 83735; 84484; 85025; 85610; 85730; 71046; G0378 ×2; C1894; J2250; J2001; J1644; Q9967

== ENCOUNTER → 2021-04-04 | Outpatient (CLI) | payer MEDICARE, OTHER ==
[2021-04-04 10:08] LABS: HCT 45.1 % (34.0-46.0); HGB 15.6 gm/dL (11.4-16.0); MCH 32.3 pg (25.0-35.0); MCHC 34.6 g/dL (31.0-37.0); MCV 93.2 fL (80.0-100.0); Mean Platelet Volume 7.1; Platelet Count 300 k/uL (150-450); RBC 4.84 m/uL (3.80-5.40); WBC 7.5 k/uL (3.8-10.6)
[2021-04-04 10:18] LABS: Potassium 4.1 mmol/L (3.5-5.1)
== END | disposition home or self-care (01) ==
LOC: LABPAT 09:21
PROVIDERS: ATTEND Internal Medicine Interventional Cardiology
DX: Z01.812 Encounter for preprocedural laboratory examination (principal); R07.9 Chest pain, unspecified
CPT/HCPCS: 36415; 80051; 82565; 84520; 85027

== ENCOUNTER → 2021-05-07 | Outpatient (CLI) | payer MEDICARE, OTHER ==
--- NOTE | 2021-05-07 21:42 | CT ---
CT CHEST FOR PULMONARY EMBOLISM. EXAMINATION TYPE: CT angio chest DATE OF EXAM: 05/07/2021 INDICATION: SOB, chest pain/achiness x6 months. Hx asthma. CT DLP: 318.70 mGycm, Automated exposure control for dose reduction was used. CONTRAST: Patient injected with 100 mL of Isovue 370. COMPARISON: None TECHNIQUE: CT of the chest is performed on a spiral scan at 2 mm thick sections. Study is performed with intravenous contrast timed for evaluation for pulmonary embolism. This will limit additional po rtions of the evaluation. 3-D MIP images reconstructed by the technologist are reviewed on the compu ter in the coronal and sagittal planes. FINDINGS: No persistent filling defects are evident to suggest an acute pulmonary embolism. No mediastinal or hilar adenopathy enlarged by CT criteria is evident. The ascending aorta diameter at the level of the main pulmonary artery is 3.3 cm. The main pulmonary artery diameter at the bifur cation is 2.5 cm. Lung windows are clear. Limited CT section through the upper abdomen are unremarkable. IMPRESSIONS: 1. No acute pulmonary embolism. 2. No acute pulmonary process.
== END | disposition home or self-care (01) ==
LOC: RADCTMAIN 17:47
PROVIDERS: ATTEND Internal Medicine Critical Care Medicine
DX: R06.02 Shortness of breath (principal)
CPT/HCPCS: 82565; 84520; 71275; 36415; Q9967

== ENCOUNTER → 2021-05-28 | Outpatient (CLI) | payer MEDICARE, OTHER ==
--- NOTE | 2021-05-28 17:11 | BD ---
EXAMINATION TYPE: Axial Bone Density DATE OF EXAM: 05/28/2021 COMPARISON: NONE CLINICAL HISTORY: Height: 5 FT 8 IN Weight: 184 FRAX RISK QUESTIONS: Alcohol (3 or more units per day): NO Family History (Parent hip fracture): NO Glucocorticoids (More than 3mos): YES (Ex: prednisone, prednisolone, methylprednisolone, dexamethasone, and hydrocortisone). History of Fracture in Adulthood: NO Secondary Osteoporosis: 1. Type 1 Diabetes: NO 2. Hyperthyroidism: REMOVED GRAVES DISEASE 3. Menopause before 45: YES 4. Malnutrition: NO 5. Chronic liver disease: NO Rheumatoid Arthritis: NO Current Tobacco Use: NO RISK FACTORS HISTORY OF: Surgery to Spine/Hip(right/left)/Wrist (right/left): NO Family History of Osteoporosis: NO Active: YES Diet low in dairy products/other sources of calcium: NO Postmenopausal woman: TOTAL HYST AGE 42 Take estrogen and/or progesterone medications: TOOK HRT FOR SEV YEARS FOLLOWING HYST NO LONGER TAKES Lost more than 2 inches in height since high school: YES MEDICATIONS: Thyroid Medications: YES Which medication: SYNTHROID How Long:APPROX 25 YEARS Additional Medications: SYNTHROID, CARDIZEM, LOSARTAN, ROSUVASTATAN, VIT D, LASIX, OMEPRAZOLE, Additional History: EXAM MEASUREMENTS: Bone mineral densitometry was performed using the [employer] System. Bone mineral density as measured about the Lumbar spine is: ----- L1-L4(G/cm2): 1.353 T Score Values are as follows: ----- L2: 0.9 ----- L3: 2.1 ----- L4: 2.6 ----- L1-L4: 1.4 Bone mineral density has: INCREASED 4.4 % since study of: 2007 Bone mineral density about the R hip (g/cm2): 0.885 Bone mineral density about the L hip (g/cm2): 0.822 T Score values are as follows: -----R Neck: -1.1 -----L Neck: -1.6 -----R Total: -0.9 -----L Total: -1.2 Bone mineral density hasDECREASED -6.6: % since study of: 2007 IMPRESSION: Osteopenia (T Score between -2.5 and -1). There is slightly increased risk of fracture and the patient may be considered for treatment. Re-Screen 2-5 years. NOTE: T-SCORE=SD OF THE YOUNG ADULT MEAN.
== END | disposition home or self-care (01) ==
LOC: RADBDWWP 09:04
PROVIDERS: ATTEND Family Medicine
DX: M85.89 Other specified disorders of bone density and structure, multiple sites (principal)
CPT/HCPCS: 77080

== ENCOUNTER → 2022-06-23 | Outpatient (CLI) | payer MEDICARE, OTHER ==
--- NOTE | 2022-06-24 10:46 | MM ---
Reason for Exam: Screening (asymptomatic). Last mammogram was performed 1 year(s) and 5 month(s) ago. Patient History: Menarche at age 13. First Full-Term at age 27. Left ovary removed at age 49. Right ovary removed at age 49. Hysterectomy at age 49. Postmenopausal. Estrogen, starting at age 49 for 2 years. Risk Values: Sophia 5 year model risk: 2.1%. NCI Lifetime model risk: 6.4%. Prior Study Comparison: 10/14/2018 Bilateral Screening Mammogram, [facility]. 11/18/2019 Bilateral Screening Mammogram, [facility]. 01/24/2021 Bilateral Screening Mammogram, [facility]. Tissue Density: There are scattered fibroglandular densities. Findings: Analyzed By CAD. There is no suspicious group of microcalcifications or new suspicious mass in either breast. Overall Assessment: Negative, BI-RAD 1 Management: Screening Mammogram of both breasts in 1 year. 1. Patient should continue monthly self breast exams. 2. A clinical breast exam by your physician is recommended on an annual basis. 3. This exam should not preclude additional follow-up of suspicious palpable abnormalities. Electronically signed and approved by: Skye Quan M.D. Radiologist
== END | disposition home or self-care (01) ==
LOC: RADMAMWWP 10:36
PROVIDERS: ATTEND Family Medicine
DX: Z12.31 Encounter for screening mammogram for malignant neoplasm of breast (principal); Z78.0 Asymptomatic menopausal state
CPT/HCPCS: 77063; 77067

== ENCOUNTER → 2022-07-16 | Outpatient (CLI) | payer MEDICARE, OTHER ==
[2022-07-16 12:34] LABS: African American GFR (CKD) >90 (>60 ml/min/1.73 sqM); Blood Urea Nitrogen 25 mg/dL (7-17); Non-African American GFR(CKD) 81 (>60 ml/min/1.73 sqM)
--- NOTE | 2022-07-16 15:09 | CT ---
EXAMINATION TYPE: CT abdomen pelvis w con DATE OF EXAM: 07/16/2022 COMPARISON: 07/07/2015 HISTORY: 71-year-old female R14.0, Abdominal pain, distension TECHNIQUE: Contiguous axial scanning of the abdomen and pelvis following administration of 70 ml Isov ue 300 IV contrast. Delayed images through the kidneys and coronal/sagittal reconstructions performe d. CT DLP: 975.20 mGycm Automated exposure control for dose reduction was used. FINDINGS: Heart normal size without pericardial effusion. Some strandy atelectasis or scarring in the lower cesario gs without pleural effusion. Small to moderate-sized hilar hernia. No focal lesion or biliary ductal dilatation. Portal venous system is patent. Small diverticulum of t he second portion of the duodenum projecting into the pancreatic head region measuring 1.7 cm. Gallbladder, adrenal glands, spleen, and pancreas within normal limits. Bilateral renal parapelvic cysts measuring up to 1.3 cm on the right and 2.0 cm on the left. Moderate atherosclerotic calcifications infrarenal abdominal aorta without aneurysm. No dilated small bowel, free fluid, or free air. No mesenteric or retroperitoneal lymphadenopathy. Normal appendix. Mild stool burden. Scattered colonic diverticulosis, greatest along the sigmoid col on. No pericolonic inflammatory change. Bladder is urine distended. Multiple pelvic phleboliths. Uterus surgically absent. Neither ovary is v isualized. No abnormal fluid collection in the pelvis or pelvic lymphadenopathy. Bones: Degenerative change pubic symphysis. Mild degenerative changes both hips. Moderate to advanced degenerative disc disease lower lumbar spine. Hypertrophic facet arthropathy mid to lower lumbar spi ne. IMPRESSION: 1. SMALL TO MODERATE-SIZED HIATAL HERNIA. 2. GENERALIZED COLONIC DIVERTICULOSIS, GREATEST IN THE SIGMOID COLON. NO EVIDENCE FOR ACUTE DIVERTICU LITIS
== END | disposition home or self-care (01) ==
LOC: RADCTMAIN 11:11
PROVIDERS: ATTEND Internal Medicine Gastroenterology
DX: K44.9 Diaphragmatic hernia without obstruction or gangrene (principal); K57.30 Diverticulosis of large intestine without perforation or abscess without bleeding
CPT/HCPCS: 82565; 84520; 74177; 36415; Q9967

== ENCOUNTER 2023-01-14 06:43 | Day surgery (SDC) | payer MEDICARE, OTHER ==
--- NOTE | 2023-01-12 13:16 | P.HPOR ---
History of Present Illness H&P Date: 01/12/23 Chief Complaint: Left thumb CMC arthritis, carpal tunnel syndrome, index finger MCP OA Subjective: This is a 72 year old female that presents today for follow up evaluation regarding a six month history of progressively worsening left thumb joint pain and associated soreness with the left index finger MCP joint. Patient denies any injury or inciting event but states on a daily basis the base of her left thumb is throbbing. She states she has extreme difficulty opening any type of jar and is in pain while driving in gripping the steering wheel. She also states that she has nighttime symptoms of pain in the thumb. She presented today to discuss new onset of numbness or tingling in the thumb, index middle and ring finger that has been progressively worsening. She's tried ibuprofen with a little relief. Physical Examination: LUE: AIN/PIN/Radial/Ulnar/Median motor intact. Radial/Ulnar/Median SILT. 2+/4 Radial/Ulnar pulses palpated. 5/5 APB, 5/5 FDI. Negative Finkelsteins, positive CMC grind, positive Durkan's compression. TTP over index MCP with maximum MCP flexion. Imaging: X-Rays of the left Hand three view reviewed from prior visit demonstrate advanced degenerative changes at the left thumb CMC joint with osteophyte formation and joint space narrowing. Mild osteoarthritic changes at the index MCP joint. Impression: 1.) Left thumb CMC arthritis, moderate to severe. 2.) Left index MCP arthritis, mild to moderate. 3.) Left carpal tunnel syndrome Plan: Diagnosis and treatment options were discussed with the patient. She states her symptoms are effecting her daily life and she is not able to do the things she wishes to do because of the pain in the thumb. We discussed steroid injections vs surgery and risks and benefits of both. She would like to proceed with left thumb basilar joint arthroplasty with a left index MCP joint steroid injection as well as a left endoscopic vs open carpal tunnel release. Risks and benefits of surgery including bleeding, infection, damage to surrounding tissue, need for further surgery, need to convert to open carpal tunnel release if endoscopic technique is not possible, residual numbness were discussed and the patient wished to go forward with surgery. She works as a center receptionist and states she would be able to return to work within 1 week of the surgery with using her right hand only which I am agreeable with. The patient was agreeable with this plan. -Christiano Ca DO Orthopedic Hand/Upper Extremity Surgeon Past Medical History Past Medical History: Asthma, Chest Pain / Angina, GERD/Reflux, Hyperlipidemia, Hypertension, Osteoarthritis (OA), Thyroid Disorder Additional Past Medical History / Comment(s): hx hypercalcemia. diverticulosis, hiatal hernia, hx small ulcer, History of Any Multi-Drug Resistant Organisms: None Reported Past Surgical History: Bladder Surgery, Heart Catheterization, Hysterectomy Additional Past Surgical History / Comment(s): rt sub maxillary salivary gland removal, parathryroidectomy, bladder suspensinon/sling/"pelvic lift" Past Anesthesia/Blood Transfusion Reactions: Motion Sickness Smoking Status: Former smoker - Past Family History Father Family Medical History: Cancer Additional Family Medical History / Comment(s): prostate cancer Mother Family Medical History: Congestive Heart Failure (CHF) Additional Family Medical History / Comment(s): Mother of CHF at age 55yrs. Medications and Allergies Home Medications Medication Instructions Recorded Confirmed Type Levothyroxine Sodium [Synthroid] 88 mcg PO DAILY 01/29/15 01/08/23 History ALPRAZolam [Xanax] 0.25 mg PO HS PRN 01/15/21 01/08/23 History Ergocalciferol [Vitamin D2 (1250 1,250 mcg PO TH 01/15/21 01/08/23 History Mcg = 14406 Iu)] Estradiol Cream [Estrace Cream 1 gm VAGINAL MOWEFR 01/15/21 01/08/23 History 0.01%] Losartan [Cozaar] 50 mg PO DAILY 01/15/21 01/08/23 History Multivitamins, Thera [Multivitamin 1 tab PO DAILY 01/15/21 01/08/23 History (formulary)] Omeprazole [PriLOSEC] 20 mg PO AC-BRKFST 01/15/21 01/08/23 History Rosuvastatin [Crestor] 10 mg PO HS 01/15/21 01/08/23 History Acetaminophen Tab [Tylenol] 650 mg PO Q4HR PRN tab 04/05/21 01/08/23 Rx Fluticasone Propion/Salmeterol 2 puff INHALATION BID 01/08/23 01/08/23 History [Advair 500-50 Diskus] Metoprolol Succinate (ER) [Toprol 25 mg PO HS 01/08/23 01/08/23 History Xl] Unk Albuterol Inhaler 2 puff INHALATION DIRECTED PRN 01/08/23 01/08/23 History Allergies Allergy/AdvReac Type Severity Reaction Status Date / Time codeine AdvReac Nausea & Verified 01/08/23 10:25 Vomiting Physical Examination Osteopathic Statement: *. No significant issues noted on an osteopathic struc tural exam other than those noted in the History and Physical/Consult.
[~2023-01-14 06:43] MED LIST changes: +DEXAMETHASONE SOD PHOSPHATE 4 MG/ML 1 ML VIAL IV ONE; +ONDANSETRON 4 MG/2 ML VIAL IVP ONE
[2023-01-14] MEDS ORDERED: fentaNYL (PF) 50 MCG/ML 2 ML AMP IV PRN (07:00)
[2023-01-14] MEDS ORDERED: LACTATED RINGERS 1,000 ML IV ONE (07:08)
[2023-01-14] MEDS ORDERED: MIDAZOLAM 2 MG/2 ML VIAL IVP ONE (07:26)
[2023-01-14] MEDS ORDERED: fentaNYL (PF) 50 MCG/ML 2 ML AMP IVP ONE (07:26)
[2023-01-14 07:44] LABS: Glucose,Whole Blood 109 mg/dL (70-110)
--- NOTE | 2023-01-14 07:44 | P.ANPRN ---
Procedure Note - Anesthesia - Nerve Block Performed Left Axillary Single Time Out Performed: Yes (725) Date of Procedure: 01/14/23 Procedure Start Time: : Procedure Stop Time: Location of Patient: PreOp Indication: Acute Post-Operative Pain, Requested by Surgeon Specifically requested for management of pain by DrKelly: Crhistiano Ca Sedation Type: Sedate with meaningful contact maintained Preparation: Sterile Prep Position: Supine Catheter: None Needle Types: Pajunk Needle Gauge: 21 Ultrasound used to visualize needle placement: Yes Ultrasound used to observe medication spread: Yes Injectate: 0.5% Ropivacaine (see comment for volume) (30cc + 10cc nacl pf. 10cc aliquots mskcut, ulnar, radial and median) Blood Aspirated: No Pain Paresthesia on Injection Noted: No Resistance on Injection: Normal Image Stored and Saved: Yes Events: Uneventful and Well Tolerated
[2023-01-14] MEDS ORDERED: SCOPOLAMINE 1 MG/72 HR PATCH TRANSDERM ONE (07:49)
[2023-01-14 07:56] VITALS: RESP 16
[2023-01-14] MEDS ORDERED: PROPOFOL 10 MG/ML 20 ML VIAL IV ONE (08:20)
[2023-01-14] MEDS ORDERED: MIDAZOLAM 2 MG/2 ML VIAL ONE (08:20)
[2023-01-14] MEDS ORDERED: LIDOCAINE 2% INJ 20 MG/ML (2 ML VIAL) ONE (08:20)
[2023-01-14] MEDS ORDERED: SODIUM CHLORIDE 0.9% (PF) 10 ML VIAL ONE (08:20)
[2023-01-14] MEDS ORDERED: SUCCINYLCHOLINE CHLORIDE 200 MG/10 ML VIAL IV ONE (08:20)
[2023-01-14] MEDS ORDERED: ROPIVACAINE 5 MG/ML 30 ML VIAL ONE (08:20)
[2023-01-14] MEDS ORDERED: methylPREDNISolone ACETATE 40 MG/ML 1 ML VIAL MISCELLANE ONE (08:39)
[2023-01-14 09:47] VITALS: TEMP 97
--- NOTE | 2023-01-14 10:00 | P.OP ---
Date of Procedure: 01/14/23 Preoperative Diagnosis: 1.) Left thumb CMC arthritis 2.) Left carpal tunnel syndrome 3.) Left index finger MCP arthritis Postoperative Diagnosis: 1.) Left thumb CMC arthritis 2.) Left carpal tunnel syndrome 3.) Left index finger MCP arthritis Procedure(s) Performed: 1.) Left thumb basilar joint arthroplasty 2.) Left endoscopic carpal tunnel release 3.) Left index finger MCP intra-articular steroid injection Implants: Arthrex 3.5mm Swivel lock suture anchors x2 Anesthesia: ELANA, regional Surgeon: Christiano Ca Watch Mechanic #1: Cortes Chavez Estimated Blood Loss (ml): 0 Pathology: none sent Condition: stable Disposition: PACU Description of Procedure: This is a 72 year old femlae who presents today for a left thumb CMC basal joint arthroplasty, left endoscopic carpal tunnel release and left index finger MCP joint steroid injection after having failed conservative treatment. Risks and benefits of surgery were discussed with the patient including bleeding, damage to surrounding tissue, infection, need for further surgery as well as risks of anesthesia including pulmonary embolism and even and the patient wished to proceed with surgical intervention. The patients was seen in the pre- operative area by myself. Consent and H&P were completed and updated. The correct extremity was marked in the pre-operative area by myself and all other questions were answered. Prior to prepping, the dorsal skin of the index finger MCP joint was prepped with an alcohol swab. 1cc of 40mg of depomedrol was injected successfully into the index finger MCP joint without complication. Patient received a upper extremity nerve block by the department of anesthesia. He then was brought to the operating room by the department of anesthesia. They remained on the portable stretcher and a rolling hand table was brought to the side of the operative extremity. The patient was then drifted off to sleep by the department of anesthesia. A nonsterile tourniquet was then applied to the operative extremity and the left upper extremity was then prepped and draped in normal sterile fashion. Pre-operative time out was performed indicating the correct patient, procedure and laterality. All in the room agreed. Pre-operative antibiotics were given prior to skin incision. The operative extremity was the exsanguinated with an esmarch bandage and the tourniquet was inflated to 250mmHg. 15 blade scalpel was utilized to make a transverse incision on the palmar skin just ulnar to the palmaris longus tendon at the level of the distal wrist crease. Ragnell retractor was then placed radially and blunt dissection was performed to reveal the distal forearm fascia. This was lifted with fine Zain pick ups and Littler tenotomy scissors were then used to open the forearm fascia transversely and a double skin hook was then placed. Hamate finder was placed into the carpal tunnel and then sequential sized dilators were inserted followed by the synovial elevator to separate the flexor tenosynovium from the undersurface of the transverse carpal ligament and a washboard texture was felt. The Sportsy endoscopic carpal tunnel release system gun was the then inserted into the carpal tunnel hugging the deep portion of the transverse carpal ligament in line with the base of the ring finger. Transverse fibers of the ligament were directly visualized. Pressure was applied on the palm to reveal the distal extent of the transverse carpal ligament. The blade was then deployed and the distal half of the transverse carpal ligament was released. The scope was then brought distal again and remaining transverse fibers were incised with the blade. The proximal half of the transverse carpal ligament was then divided and again the scope was advanced distal and remaining transverse fibers were incised with the blade. The radial and ulnar leaflets were directly visualized and mobile consistent with complete release. Tenotomy scissors were then utilized to release the remaining distal forearm fascia under direct visualization taking care to preserve the palmar cutaneous branch of the median nerve. Attention was then drawn to the base of the thumb. Longitudinal incision was made over the left thumb CMC joint with a 15 blade scalpel. Blunt dissection was taken down to subcutaneous tissues with littler scissors taking care to preserve the branches of the superficial radial nerve. Dorsal radial artery was identified proximally in the incision and protected throughout the procedure. Scalpel was then made to incise the thumb CMC joint creating full thickness flaps off of the proximal metacarpal base and trapezium, this plane was further developed with a periosteal elevator. Elevator was then utilized to identify the thumb CMC joint and scaphotrapezial joint. McGlamory elevator was then used to excise the trapezium whole. Guidewire was then introduced down to the laser line at the base of the first metacarpal through the same incision and was over drilled. Another guidewire was then inserted at the radial base of the first metacarpal near the Insertion of APL and was then over drilled with normal drill guide. A 3.5mm Arthrex SwiveLock anchor was then inserted into the base of the first metacarpal. While holding the thumb in slight traction and full adduction, another 3.5mm Arthrex SwiveLock anchor was inserted into the base of the second metacarpal and the two strands of fibertape were centered across the first metacarpal base to create a sling around the base suspending the thumb metacarpal, good radha purchase was appreciated. The thumb was successfully suspended and full ROM was achieved passively. Suture ends were cut and skin was closed with several interrupted 4-0 Monocryl sutures followed by a running 4-0 Monocryl stitch. Sterile dressing consisting of mastisol and steri strips followed by 4x4s cast padding, and a thumb spica plaster splint was applied. Tourniquet was let down and the hand had brisk cap refill and normal perfusion immediately. The patient was then woken by the department of anesthesia and transferred to PACU in stable condition. Cortes LOZADA was present for the case and assisted in major portions of procedure and protection of vital neurovascular structures. Christiano Ca D.O. Orthopedic Hand/Upper Extremity Surgeon
[2023-01-14 12:04] VITALS: BP 129/77; PULSE 65
== END 2023-01-14 12:14 | disposition home or self-care (01) ==
LOC: OR 06:43
PROVIDERS: ATTEND Orthopaedic Surgery Hand Surgery
DX: M18.12 Unilateral primary osteoarthritis of first carpometacarpal joint, left hand (principal); G56.02 Carpal tunnel syndrome, left upper limb; M19.042 Primary osteoarthritis, left hand; G89.18 Other acute postprocedural pain; M25.742 Osteophyte, left hand; J45.909 Unspecified asthma, uncomplicated; K21.9 Gastro-esophageal reflux disease without esophagitis; I10 Essential (primary) hypertension; E03.9 Hypothyroidism, unspecified; E78.5 Hyperlipidemia, unspecified; Z88.5 Allergy status to narcotic agent; Z79.899 Other long term (current) drug therapy
CPT/HCPCS: 25447; 29848; 20604; 64415; C1713; J2250; J0330; J1030; J1100; J0690; J2405; J3010; J2795; J2704; J2001; 76942

== ENCOUNTER → 2023-10-07 | Outpatient (CLI) | payer MEDICARE, OTHER ==
--- NOTE | 2023-10-09 16:22 | MM ---
Reason for Exam: Screening (asymptomatic). Last mammogram was performed 1 year(s) and 4 month(s) ago. Patient History: Menarche at age 13. First Full-Term at age 27. Left ovary removed at age 49. Right ovary removed at age 49. Hysterectomy at age 49. Postmenopausal. Estrogen, starting at age 49 for 2 years. Risk Values: Sophia 5 year model risk: 2.1%. NCI Lifetime model risk: 5.9%. Prior Study Comparison: 11/18/2019 Bilateral Screening Mammogram, [facility]. 01/24/2021 Bilateral Screening Mammogram, [facility]. 06/23/2022 Bilateral MG 3D screening mammo w/cad, [facility]. Tissue Density: There are scattered fibroglandular densities. Findings: Analyzed By CAD. Abdomen appears symmetrical and stable. No significant interval change is evident. Benign punctate calcifications are present bilaterally. No suspicious groups of microcalcifications, spiculated or lobular masses, architectural distortion or other secondary signs of malignancy are mammographically apparent. Overall Assessment: Benign, BI-RAD 2 Management: Screening Mammogram of both breasts in 1 year. A negative mammogram report should not preclude additional follow up of suspicious palpable abnormalities. Patient should continue monthly self breast exam. A clinical breast exam by your physician is recommended on an annual basis and results should be correlated with mammographic findings. Electronically signed and approved by: Mark Molina D.O. Radiologis
== END | disposition home or self-care (01) ==
LOC: RADMAMWWP 12:28
PROVIDERS: ATTEND Family Medicine
DX: Z12.31 Encounter for screening mammogram for malignant neoplasm of breast (principal); Z78.0 Asymptomatic menopausal state
CPT/HCPCS: 77063; 77067

== ENCOUNTER → 2023-11-04 | Outpatient (CLI) | payer MEDICARE, OTHER ==
--- NOTE | 2023-11-04 13:51 | XR ---
EXAMINATION TYPE: XR cervical spine comp DATE OF EXAM: 11/04/2023 COMPARISON: NONE HISTORY: Pain TECHNIQUE: Four views are submitted. FINDINGS: The odontoid is intact. There are no compression deformities. The prevertebral soft tissue structur es are within normal limits. There is a moderate multilevel degenerative disc disease with severe ch anges seen at C4-5. Grade 1 anterolisthesis C7-T1. Severe facet arthropathy multilevel additional fac et arthropathy. A foraminal protrusion at C3-4 and C4 venous and C6-C7 bilaterally. IMPRESSION: 1. Multilevel degenerative disc disease with grade 1 anterior listhesis C7-T1..
== END | disposition home or self-care (01) ==
LOC: RADXRMAIN 13:25
PROVIDERS: ATTEND Family Medicine
DX: M43.13 Spondylolisthesis, cervicothoracic region (principal); M50.31 Other cervical disc degeneration, high cervical region
CPT/HCPCS: 72050

== ENCOUNTER → 2023-12-10 | Outpatient (CLI) | payer MEDICARE, OTHER ==
[2023-12-10 11:15] LABS: African American GFR (CKD) 90 (>60 ml/min/1.73 sqM); Blood Urea Nitrogen 26 mg/dL (7-17); Non-African American GFR(CKD) 78 (>60 ml/min/1.73 sqM)
--- NOTE | 2023-12-10 14:12 | CT ---
EXAMINATION TYPE: CT abdomen wo/w con DATE OF EXAM: 12/10/2023 COMPARISON: 07/16/2022 CT abdomen and pelvis. CTA chest on 05/07/2021. HISTORY: Constipation and difficulty digesting food. CT DLP: 1390.2 mGycm Automated exposure control for dose reduction was used. TECHNIQUE: Helical acquisition of images was performed from the lung bases through the top of iliac crest to include entire abdomen. CONTRAST: Performed with Oral Contrast and without and with IV Contrast, patient injected with 100 mL of Isovue 300. FINDINGS: LUNG BASES: 9.4 mm nodule in the right lower lobe on series 6 image 2 is new since the previous exami nations. The lung bases otherwise appear relatively clear. There are no pleural or pericardial effusi ons. LIVER/GB: No significant abnormality is appreciated. PANCREAS: No significant abnormality is seen. SPLEEN: No significant abnormality is seen. ADRENALS: No significant abnormality is seen. KIDNEYS: No significant abnormality is seen. BOWEL: There is a small sliding hiatal hernia. There is scattered colonic diverticulosis without brenda dence of diverticulitis. LYMPH NODES: No significant abnormality is seen. OSSEOUS STRUCTURES: No significant abnormality is seen. FREE AIR: No free air is visualized. OTHER: There is moderate vascular calcification throughout the abdominal aorta without evidence of an eurysmal dilation or dissection. IMPRESSION: 1. NO ACUTE PROCESS SEEN WITHIN THE ABDOMEN. 2. SMALL HIATAL HERNIA. 3. DIVERTICULOSIS WITHOUT EVIDENCE OF DIVERTICULITIS. 4. NEW RIGHT LOWER LOBE PULMONARY NODULE OF INDETERMINATE ETIOLOGY. A FOLLOW-UP IN 3 MONTHS OR PET/CT WOULD BE RECOMMENDED FOR FURTHER EVALUATION.
== END | disposition home or self-care (01) ==
LOC: RADCTMAIN 10:28
PROVIDERS: ATTEND Family Medicine
DX: K57.32 Diverticulitis of large intestine without perforation or abscess without bleeding (principal); K44.9 Diaphragmatic hernia without obstruction or gangrene; K57.90 Diverticulosis of intestine, part unspecified, without perforation or abscess without bleeding; R91.1 Solitary pulmonary nodule
CPT/HCPCS: 82565; 84520; 74170; 36415; Q9967

== ENCOUNTER → 2024-01-16 | Outpatient (CLI) | payer MEDICARE, OTHER ==
--- NOTE | 2024-01-20 22:17 | MR ---
EXAMINATION TYPE: MR ankle RT wo con DATE OF EXAM: 01/16/2024 COMPARISON: None available HISTORY: Right ankle pain and swelling x6 months, Posterior tibial tendonitis with parenthesis Multiplanar, multisequence images of the right ankle were acquired without contrast. FINDINGS: LIGAMENTS: Anterior talofibular, calcaneofibular, posterior talofibular ligaments are normal. Deltoid ligamentous complex is normal. Tibiofibular syndesmosis is normal. Spring ligament is normal. Lisfranc ligament normal. PERONEAL TENDONS: Slight increase fluid within the common peroneal tendon sheath, relating to tenosyn ovitis. The tendons are intact. FLEXOR TENDONS: Increased fluid within the posterior tibial tendon sheath, relating to tenosynovitis. The flexor hallucis longus and flexor digitorum longus tendons and tendon sheaths are normal. EXTENSOR TENDONS: Normal. ACHILLES TENDON: Normal. BONES/CARTILAGE/JOINT: Plantar calcaneal enthesophyte is present, demonstrates nondisplaced fracture with reactive bone tal ow edema in the posterior process of the calcaneus. Normal variant calcaneal vascular remnants. Accessory os trigonum. Articular cartilage is normal. No joint effusion. SOFT TISSUES: No bursal distention. Kager's fat pad is normal. Sinus tarsi is normal. Proximal medial band of the plantar fascia is thickened to 8 mm with focal partial-thickness tear at the fascial origin. Associated reactive soft tissue edema deep and superficial to the plantar fascia origin. Neurovascular structures are normal. IMPRESSION: 1. Posterior tibial tendon tenosynovitis. 2. Common peroneal tenosynovitis. 3. Plantar fasciitis and focal partial-thickness tear of the plantar fascia origin. Nondisplaced enth esophyte fracture of plantar calcaneal spur.
== END | disposition home or self-care (01) ==
LOC: RADMRIMAIN 09:46
PROVIDERS: ATTEND Podiatrist Foot & Ankle Surgery
DX: S82.891A Other fracture of right lower leg, initial encounter for closed fracture (principal); M72.2 Plantar fascial fibromatosis; M77.31 Calcaneal spur, right foot; M65.871 Other synovitis and tenosynovitis, right ankle and foot; X58.XXXA Exposure to other specified factors, initial encounter

== ENCOUNTER → 2024-03-14 | Outpatient (CLI) | payer MEDICARE, OTHER ==
[2024-03-14 15:08] LABS: African American GFR (CKD) 83 (>60 ml/min/1.73 sqM); Blood Urea Nitrogen 28 mg/dL (7-17); Non-African American GFR(CKD) 72 (>60 ml/min/1.73 sqM)
--- NOTE | 2024-03-14 15:39 | CT ---
EXAMINATION TYPE: CT chest w con DATE OF EXAM: 03/14/2024 COMPARISON: 05/07/2021 HISTORY: NODULE CT DLP: 415 mGycm Automated exposure control for dose reduction was used. CONTRAST: CT scan of the chest is performed with IV Contrast, patient injected with 100 mL of Isovue 300. FINDINGS: LUNGS: Approximately 5 right lower lobe nodules measuring up to 7 mm are new since prior study. No ad ditional nodules are seen. Six-month follow-up advised. There is no pleural effusion or pneumothorax seen. The tracheobronchial tree is patent. MEDIASTINUM: There are no greater than 1 cm hilar or mediastinal lymph nodes. No pericardial effusi on is seen. Thoracic aorta is of normal caliber. The heart is not enlarged. Small hiatal hernia seen . UPPER ABDOMEN: No significant abnormality appreciated. OTHER: No additional significant abnormality is seen. IMPRESSION: Approximately 5 right lower lobe nodules measuring up to 7 mm are new since prior study. No additiona l nodules are seen. Six-month follow-up advised.
== END | disposition home or self-care (01) ==
LOC: RADCTMAIN 14:25
PROVIDERS: ATTEND Family Medicine
DX: R91.8 Other nonspecific abnormal finding of lung field (principal)
CPT/HCPCS: 82565; 84520; 71260; 36415; Q9967

== ENCOUNTER → 2024-07-27 | Outpatient (CLI) | payer MEDICARE, OTHER ==
[2024-07-27 10:40] LABS: African American GFR (CKD) 90 (>60 ml/min/1.73 sqM); Blood Urea Nitrogen 26 mg/dL (7-17); Non-African American GFR(CKD) 78 (>60 ml/min/1.73 sqM)
--- NOTE | 2024-07-27 11:34 | CT ---
EXAMINATION TYPE: CT chest w con CT DLP: 663 mGycm, Automated exposure control for dose reduction was used. DATE OF EXAM: 07/27/2024 11:09 AM COMPARISON: CT chest 03/14/2024, CTA chest 05/07/2021 CLINICAL INDICATION:Female, 73 years old with history of R91.8 ABNORMAL FINDING IN LUNG FIELD; PHH, A bnormal findings of lung field, lung nodules. TECHNIQUE: Multiple axial images were obtained through the chest following the administration of 100 cc of Isovue 300. . Coronal and sagittal reformats reviewed. FINDINGS: LUNGS/ PLEURA: No pleural effusion or pneumothorax. Decreased right lower lobe tree-in-bud nodular de nsities. New right upper lobe 7 mm groundglass opacity (series 4, image 18). New left upper lobe post erior 8mm complex density (series 4, image 18). AIRWAY: Patent and unremarkable.. HEART: Size within normal limits. No pericardial effusion. MEDIASTINUM: No evidence of adenopathy. VASCULATURE: Four-vessel aortic arch. Mild atherosclerotic calcification of the aortic and its branc hes. MUSCULOSKELETAL: No acute osseous abnormalities SOFT TISSUES/LYMPH NODES: Unremarkable. LOWER NECK: No significant findings. UPPER ABDOMEN: Diffuse low-attenuation to the liver parenchyma. Small to moderate-sized hiatal hernia . IMPRESSION: 1. Decreased size of right lower lobe tree-in-bud nodular opacities likely representing an infectious /inflammatory process. 2. Development of bilateral upper lobe nodular groundglass opacities favored to represent an infectio us/inflammatory process. Follow-up CT chest in 3-6 months is recommended. 3. Small to moderate size hiatal hernia. 4. Hepatic steatosis. [facility], , 07/27/2024 11:31 AM
== END | disposition home or self-care (01) ==
LOC: RADCTMAIN 10:02
PROVIDERS: ATTEND Internal Medicine Critical Care Medicine
CPT/HCPCS: 36415; 71260; 82565; 84520

== ENCOUNTER → 2025-01-31 | Outpatient (CLI) | payer MEDICARE, OTHER ==
[2025-01-31 11:00] LABS: African American GFR (CKD) 77 (>60 ml/min/1.73 sqM); Blood Urea Nitrogen 28 mg/dL (7-17); Non-African American GFR(CKD) 67 (>60 ml/min/1.73 sqM)
--- NOTE | 2025-01-31 14:06 | CT ---
EXAMINATION TYPE: CT chest w con CT DLP: 446.9 mGycm, Automated exposure control for dose reduction was used. DATE OF EXAM: 01/31/2025 11:49 AM COMPARISON: CT chest 06/30/2024, 03/14/2024, CTA chest 05/07/2021 CLINICAL INDICATION:Female, 74 years old with history of R91.1 SOLITARY PULMONARY NODULE; PHH, lung n odule TECHNIQUE: Multiple axial images were obtained through the chest following the administration of 100 cc of Isovue 300. . Coronal and sagittal reformats reviewed. FINDINGS: LUNGS/ PLEURA: No pleural effusion or pneumothorax. Resolution of previously demonstrated groundglass opacities within the bilateral upper lobes. Stable peripheral right lower lobe 3.2 mm groundglass n odule (series 4, image 38). Minimal biapical pleural-parenchymal scarring. Minimal bilateral lower lo be dependent subsegmental atelectasis. Similar right lower lobe tree-in-bud nodular opacities. AIRWAY: Patent and unremarkable.. HEART: Size within normal limits. No pericardial effusion. No significant coronary calcifications. MEDIASTINUM: No evidence of adenopathy. VASCULATURE: Four-vessel aortic arch. Mild atherosclerotic calcification of the aortic and its branc hes. MUSCULOSKELETAL: No acute osseous abnormalities SOFT TISSUES/LYMPH NODES: Unremarkable. LOWER NECK: No significant findings. UPPER ABDOMEN: Diffuse low-attenuation to the liver parenchyma. Small to moderate-sized hiatal hernia redemonstrated. Left renal sinus cysts. No follow-up recommended. IMPRESSION: 1. Similar right lower lobe tree-in-bud nodular opacities likely representing an infectious/inflammat ory process. 2. Resolution of previously demonstrated bilateral upper lobe groundglass opacities with stable right lower lobe 3.2 mm groundglass pulmonary nodule. According to Fleischner criteria, no follow-up is re commended in a low-risk patient. Consider additional CT chest in 12 months in a high-risk patient. 3. Small to moderate size hiatal hernia. 4. Hepatic steatosis. [facility], , 01/31/2025 2:03 PM
== END | disposition home or self-care (01) ==
LOC: RADCTMAIN 10:24
PROVIDERS: ATTEND Internal Medicine Critical Care Medicine
DX: R91.8 Other nonspecific abnormal finding of lung field (principal); K76.0 Fatty (change of) liver, not elsewhere classified; K44.9 Diaphragmatic hernia without obstruction or gangrene
CPT/HCPCS: 82565; 84520; 71260; 36415; Q9967